=== PATIENT | female | born 1965 | race Caucasian/White ===

== ENCOUNTER 2017-04-04 18:25 | Emergency (ER) | payer BC ==
[2017-04-04] MEDS ORDERED: fentaNYL CITRATE/PF 100 MCG/ 2ML AMP IM ONE (18:32)
--- NOTE | 2017-04-04 18:38 | ED Physician Documentation ---
Fall - HISTORIAN Historian: patient - HPI Stated Complaint: Arm Injury Chief Complaint: Shoulder Injury/ Pain Onset: just prior to arrival Where: home (riding a horse) Context: other (fell off her horse ) Associated Symptoms:: no loss of consciousness Location of Pain/Injury: neck, chest, L shoulder Injury to Right Extremity: wrist Injury to Left Extremity: shoulder, arm, wrist Further Comments: yes (she states she is in "severe pain" from the fall. No LOC she did not hit her head) - ROS CONST: no problems NEURO: denies: dizziness MS/SKIN/LYMPH: neck pain. denies: numbness, rash EYES/ENT: denies: problems with vision CVS/RESP: denies: chest pain, shortness of breath GI/: denies: problems urinating, nausea, vomiting - PAST HX Past History: other (breast cancer ) Immunizations: UTD Allergies/Adverse Reactions: Allergies Allergy/AdvReac Type Severity Reaction Status Date / Time morphine Allergy Rash Verified 04/04/17 18:38 Home Medications: Ambulatory Orders Medication Instructions Recorded Buspirone HCl [Buspar] 10 mg PO BID 04/04/17 Citalopram Hydrobromide [Celexa] 40 mg PO QD 04/04/17 Duloxetine HCl [Cymbalta] 60 mg PO DAILY 04/04/17 Fluticasone/Salmeterol [Advair 1 each INH DAILY 04/04/17 250-50 Diskus] Ibuprofen [Advil] 600 mg PO TID PRN 04/04/17 Prazosin HCl [Minipress] 1 mg PO HS 04/04/17 - SOCIAL HX Smoking History: cigarettes Alcohol Use: none Drug Use: none - FAMILY HX Family History: none - VITAL SIGNS Vital Signs: Vital Signs Temp Pulse Resp BP Pulse Ox 97 F L 116 H 22 183/104 99 04/04/17 18:25 04/04/17 18:25 04/04/17 18:25 04/04/17 18:25 04/04/17 18:25 - REVIEWED ASSESSMENTS Nursing Assessment Reviewed: Yes Vitals Reviewed: Yes Progress - Progress Progress: 2000: pt states pain is starting to increase 7-8/10 requesting pain meds ED Results Lab/Radiology - Radiology Radiology Impressions: Impression: 1. No acute fracture or dislocation of Hand 2 view shoulder Impression Left humeral neck fracture : Left humeral neck fracture with minimal medial displacement of the distal humerus consult from [facility] Dr Hagan (ortho) about the above. New shoulder view recommended for location purposes IF there is no dislocation then immobilize and refer to trauma ortho (here or in her home town) No dislocation per Dr Perez Verbal Discussed with and pt and she will follow up with ortho when the arrive home She will take disc She does not want us to set us up an appt with [facility] CT: Impression: Proximal the left humerus fracture without dislocation - Orders Orders: ED Orders Category Date Time Status BILAT WRISTS 3 VIEW [RAD] Stat Exams 04/04/17 Ordered C SPINE 4 VIEWS OR MORE [RAD] Stat Exams 04/04/17 Ordered CHEST P.A.&LAT 2 VIEWS [RAD] Stat Exams 04/04/17 Ordered HUMERUS 2 VIEWS OR MORE [RAD] Stat Exams 04/04/17 Ordered SHOULDER BLADE X-RAY [SCAPULA COMPLETE] [RAD] Stat Exams 04/04/17 Ordered fentaNYL CITRATE/PF [Duragesic] Med 04/04/17 18:32 Once 100 mcg IM NOW ONE Fall Physical Exam - Physical Exam General Appearance: moderate distress Head: non-tender, no swelling, no obvious injury Neck: painless ROM (left lateral movement and palpation ) Eye: RIA Resp/CVS: breath sounds nml, no resp. distress, heart sounds nml, rib tenderness (left side upper chest pain with palpation ). No: wheezes, rhonchi Abdomen: soft, normal bowel sounds, no distension. No: tenderness Neuro: oriented x3, CN's nml as tested, sensation nml, motor nml, mood/affect nml, erp developer nml, reflexes nml Skin: color nml, no rash Back: normal inspection Extremities: other (left arm and collar area with swelling . right wrist with swelling ) Joint: nml ROM (she will not move left arm or shoulder ) - [place] Coma Score Eyes Open: Spontaneous Speech: Oriented Motor: Obeys Commands Discharge Clincal Impression: Fx humeral neck Qualifiers: Encounter type: initial encounter Fracture type: closed Laterality: left Qualified Code(s): S42.212A - Unspecified displaced fracture of surgical neck of left humerus, initial encounter for closed fracture Referrals: Primary Doctor,No [Primary Care Provider] - 2 Days Additional Instructions: Discussion with Dr Hagan (ortho [facility]) She will decide if she would like referral to [facility] or make her own appt in home town Condition: Stable Disposition: 01 HOME, SELF-CARE Decision to Admit: NO Date of Decison to Admit: 04/04/17 Decision Time: 20:05
[2017-04-04] MEDS ORDERED: MEPERIDINE HCL/PF 50 MG/ML DISP.SYRIN IM ONE (19:48)
[2017-04-04] MEDS ORDERED: PROMETHAZINE HCL 25 MG/ML VIAL IM ONE (19:48)
[2017-04-04] MEDS ORDERED: HYDROcodone /APAP 5/325 1 EACH TABLET PEG PRN (21:00)
[2017-04-04] MEDS ORDERED: fentaNYL CITRATE/PF 100 MCG/ 2ML AMP IVP ONE (21:26)
[2017-04-04] MEDS ORDERED: fentaNYL 50 MCG PATCH TD SCH (22:00)
[2017-04-04] MEDS ORDERED: HYDROcodone /APAP 5/325 1 EACH TABLET PO ONE (22:18)
[2017-04-04 22:36] VITALS: BP 128/76
--- NOTE | 2017-04-05 06:55 | Diagnostic Imaging Report ---
DELMER WESLEY [facility] [address] [facility] [address] [place], [place]. [address] Report Submission Date: Apr 04, 2017 10:11:22 PM COCKTAIL SERVER Patient Study Name: JODI GILL Date: Apr 04, 2017 9:42:36 PM COCKTAIL SERVER Modality Type: CT\SR Gender: F Description: CT ARM W/O CONTRAST : 63 Institution: [facility] Physician: DELMER WESLEY CT of the left shoulder without contrast Clinical history: Fractured left humerus Technique: Multiple contiguous axial images were taken to the left shoulder without the use of contrast. Reformations obtained. Findings: There is a left humeral neck fracture fracture line extending to the inferior lateral aspect of the humeral head. The humeral head remains normally aligned within the glenoid. The ac joint is maintained. The soft tissues are unremarkable. Impression: Proximal the left humerus fracture without dislocation. Electronically signed on Apr 04, 2017 10:11:22 PM COCKTAIL SERVER by: Mainor VELASQUEZ
--- NOTE | 2017-04-05 06:56 | Diagnostic Imaging Report ---
DELMER WESLEY [facility] [address] [address] Report Submission Date: Apr 04, 2017 8:44:49 PM SALICYLIC ACID BLENDER Patient Study Name: JODI GILL Date: Apr 04, 2017 8:25:30 PM SALICYLIC ACID BLENDER Modality Type: CR Gender: F Description: SHOULDER : 63 Institution: [facility] Physician: DELMER WESLEY 2 views of the left shoulder Clinical history: Left shoulder pain Findings: Study is essentially nondiagnostic. Impression: Nondiagnostic shoulder radiographs Electronically signed on Apr 04, 2017 8:44:49 PM SALICYLIC ACID BLENDER by: Mainor VELASQUEZ
--- NOTE | 2017-04-05 06:57 | Diagnostic Imaging Report ---
DELMER WESLEY [facility] [address] [facility] [address] [place] [address]. [address] Report Submission Date: Apr 04, 2017 7:29:33 PM AUDIO VISUAL ENGINEER Patient Study Name: JODI GILL Date: Apr 04, 2017 7:03:39 PM AUDIO VISUAL ENGINEER Modality Type: CR Gender: F Description: UPPER EXTREMITY : 63 Institution: [facility] Physician: DELMER WESLEY 3 views the right hand Clinical history: Right hand injury Findings: No acute fracture or dislocation is identified. The alignment is within normal limits. Old distal ulna fracture fragment is noted. Impression: No acute fracture dislocation Electronically signed on Apr 04, 2017 7:29:33 PM AUDIO VISUAL ENGINEER by: Mainor VELASQUEZ
--- NOTE | 2017-04-05 06:58 | Diagnostic Imaging Report ---
DELMER WESLEY [facility] [address] [facility] [address] [address] Report Submission Date: Apr 04, 2017 7:27:04 PM [employer] Patient Study Name: JODI GILL Date: Apr 04, 2017 6:53:23 PM [employer] Modality Type: CR Gender: F Description: UPPER EXTREMITY : 63 Institution: [facility] Physician: DELMER WESLEY 2 views left shoulder Clinical history: Shoulder injury Findings: There is a left humeral neck fracture with minimal medial displacement of the distal humerus.. Impression: Left humeral neck fracture as above. Electronically signed on Apr 04, 2017 7:27:04 PM [employer] by: Mainor VELASQUEZ
== END 2017-04-04 22:30 | disposition home or self-care (01) ==
LOC: ED 18:25
DX: S42.212A Unspecified displaced fracture of surgical neck of left humerus, initial encounter for closed fracture (principal); W19.XXXA Unspecified fall, initial encounter; Y93.9 Activity, unspecified; Y99.9 Unspecified external cause status
CPT/HCPCS: 73030; 73060; 73110; 73200; J2175; J2550; J3010; 96372; 99283; S1016